=== PATIENT | male | born 2000 | race Caucasian/White ===

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

== ENCOUNTER 2023-03-10 17:51 | Emergency (ER) | payer OTHER ==
[~2023-03-10] VITALS: Ht 185.4 cm; Wt 67.0 kg
[2023-03-10 18:07] VITALS: BP 117/67
== END 2023-03-10 18:49 | disposition home or self-care (01) ==
LOC: ER 17:51
DX: J02.9 Acute pharyngitis, unspecified (principal)
CPT/HCPCS: 87430; 99283

== ENCOUNTER 2023-03-23 18:53 | Emergency (ER) | payer OTHER ==
[~2023-03-23] VITALS: Ht 185.4 cm; Wt 68.0 kg
[2023-03-23 19:04] VITALS: BP 132/83
== END 2023-03-23 20:57 | disposition home or self-care (01) ==
LOC: ER 18:53
DX: S83.92XA Sprain of unspecified site of left knee, initial encounter (principal); V00.131A Fall from skateboard, initial encounter
CPT/HCPCS: 73562-LT; 96372; 99283-25; J1885

== ENCOUNTER → 2023-11-01 | Outpatient (CLI) | payer OTHER ==
[2023-11-01 19:55] LABS: BASOPHILS ABSOLUTE AUTO 0.05 K/mm3 (0.00-0.23); BASOPHILS PERCENT AUTO 1 % (0-2); EOSINOPHILS ABSOLUTE AUTO 0.06 K/mm3 (0.00-0.68); EOSINOPHILS PERCENT AUTO 1 % (0-6); Hematocrit 41.3 % (37.0-53.0); Hemoglobin 14.6 g/dL (13.5-17.5); IMMATURE GRAN ABSOLUTE AUTO 0.01 K/mm3 (0.00-0.10); IMMATURE GRAN PERCENT AUTO 0 % (0-1); LYMPHOCYTES ABSOLUTE AUTO 2.28 K/mm3 (0.84-5.20); LYMPHOCYTES PERCENT AUTO 35 % (21-46); MONOCYTES ABSOLUTE AUTO 0.42 K/mm3 (0.16-1.47); MONOCYTES PERCENT AUTO 7 % (4-13); Mean Corpuscular HGB 30.1 pg (26.0-34.0); Mean Corpuscular HGB Conc 35.4 g/dL (31.5-36.5); Mean Corpuscular Volume 85 fL (80-100); Mean Platelet Volume 10.8 fL (9.1-12.4); NEUTROPHILS ABSOLUTE AUTO 3.66 K/mm3 (1.96-9.15); NEUTROPHILS PERCENT AUTO 56 % (41-73); Platelet Count 218 K/mm3 (150-400); RDW Coefficient Variation 11.9 % (11.7-14.2); RDW Standard Deviation 36.5 fL (35.1-46.3); Red Blood Cell Count 4.85 M/mm3 (4.30-5.90); White Blood Cell Count 6.48 K/mm3 (4.00-11.30)
[2023-11-01 20:21] LABS: Alanine Aminotransfer (ALT/SGP 23 U/L (12-78); Albumin, Blood 4.4 g/dL (3.4-5.0); Albumin/Globulin Ratio 1.3 (0.8-1.8); Alk Phos 88 U/L (50-136); Anion Gap 8 mmol/L (3-11); Aspartate Aminotrans (AST/SGOT 21 U/L (12-37); Blood Urea Nitrogen 15 mg/dL (8-24); Bun/Creatinine Ratio 17.6 (12.0-20.0); C-REACTIVE PROTEIN, EXT RANGE <0.290 mg/dL (0.000-0.300); CO2, Blood 28 mmol/L (21-32); Calcium, Blood 9.3 mg/dL (8.5-10.1); Chloride, Blood 109 mmol/L (98-108); Creatinine, Blood 0.85 mg/dL (0.60-1.20); Globulin, Blood 3.4 g/dL (2.2-4.0); Glomerular Filtration Rate 127 (60-); Glucose, Blood 122 mg/dL (70-99); Potassium, Blood 3.4 mmol/L (3.5-5.5); Sodium, Blood 142 mmol/L (136-145); Total Protein, Blood 7.8 g/dL (6.4-8.2)
[2023-11-04 08:32] LABS: HIV 1,2 COMBO ANTIGEN/ANTIBODY Negative (Negative)
== END | disposition home or self-care (01) ==
LOC: LAB 19:02 → LAB SHORT 19:02
PROVIDERS: Family Medicine
DX: R63.4 Abnormal weight loss (principal)
CPT/HCPCS: 80053; 83036; 84443; 85025; 86140

== ENCOUNTER 2024-01-30 19:14 | Emergency (ER) | payer OTHER ==
[~2024-01-30] VITALS: Ht 185.4 cm; Wt 77.1 kg
[2024-01-30 19:25] VITALS: BP 150/70
[2024-01-30] MEDS ORDERED: Lidocaine HCl 4% Cream 5 GM TOP ONE (20:25)
[2024-01-30] MEDS ORDERED: Trimethoprim/Sulfamethoxazole DS Tab PO ONE (20:30)
[2024-01-30] MEDS ORDERED: Mupirocin 2% Ointment 22 GM TOP ONE (20:30)
[2024-01-30] MEDS ORDERED: ASPERFLEX LIDOC15 GM TOP (20:31)
[2024-01-30] MEDS ORDERED: MUPIROCIN1 G1 TOP (20:31)
== END 2024-01-30 20:43 | disposition home or self-care (01) ==
LOC: ER 19:14
DX: L73.9 Follicular disorder, unspecified (principal); K62.89 Other specified diseases of anus and rectum
CPT/HCPCS: 99283; A9270

== ENCOUNTER 2025-03-14 19:24 | Emergency (ER) | payer OTHER ==
[~2025-03-14] VITALS: Ht 185.4 cm; Wt 72.6 kg
[~2025-03-14 19:24] MED LIST changes: +ASPERFLEX LIDOC15 GM TOP; +ERYT1OIN RIGHTEYE; +MUPIROCIN1 G1 TOP
[2025-03-14 19:27] VITALS: BP 159/90
[2025-03-14] MEDS ORDERED: Triamcinolone A15 G3 TOP (19:33)
== END 2025-03-14 19:43 | disposition home or self-care (01) ==
LOC: ER 19:24
DX: L23.7 Allergic contact dermatitis due to plants, except food (principal)
CPT/HCPCS: 99283; A9270